=== PATIENT | male | born 1965 | race Caucasian/White ===

== ENCOUNTER 2019-09-21 06:05 | Emergency (ER) | payer OTHER ==
--- NOTE | 2019-09-21 09:19 | ER Document Report ---
ED General - General Chief Complaint: Blood Pressure Problem Stated Complaint: NAUSEA/HIGH BLOOD PRESSURE Time Seen by Provider: 09/21/19 09:00 [facility] [[facility] - Follow up as needed Mode of Arrival: Ambulatory Information source: Patient TRAVEL OUTSIDE OF THE [place] IN LAST 30 DAYS: No - HPI Onset: Other - over the last several days Onset/Duration: Gradual Quality of pain: Pressure Severity: Mild Pain Level: 1 Associated symptoms: Other - Anxiety, PTSD, Stress Exacerbated by: Other - Stress Relieved by: Other - Calming himself down and taking his Anxiety Medication Similar symptoms previously: Yes Recently seen / treated by doctor: Yes - Patient has seen his PCP recently Notes: 54 year old male with a history of HTN, PTSD, Anxiety here in the ER for Anxiety and Chest Pains. 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 The patient says he had a night mare last night which he feels made his blood pressure spike. The patient took viagra to help with his blood pressure spike (he has been told he can do this PRN) and it seemed to help. The patient endorses some mild radiation of chest pain to his left neck but he denies nausea, vomiting, sweating, fevers, chills. - Related Data Allergies/Adverse Reactions: Penicillins Allergy (Verified 09/21/19 07:05) Past Medical History - General Information source: Patient - Social History Smoking Status: Former Smoker Frequency of alcohol use: Occasional Drug Abuse: None Lives with: Alone Family History: Reviewed & Not Pertinent Patient has suicidal ideation: No Patient has homicidal ideation: No - Past Medical History Cardiac Medical History: Reports: Hx Hypertension Psychiatric Medical History: Reports: Hx Anxiety, Hx Post Traumatic Stress Disorder Review of Systems - Review of Systems Constitutional: No symptoms reported EENT: No symptoms reported Cardiovascular: Chest pain Respiratory: No symptoms reported Gastrointestinal: No symptoms reported Genitourinary: No symptoms reported Male Genitourinary: No symptoms reported Musculoskeletal: No symptoms reported Skin: No symptoms reported Hematologic/Lymphatic: No symptoms reported Neurological/Psychological: Anxiety, Other - PTSD, Stress -: Yes All other systems reviewed and negative Physical Exam - Vital signs Vitals: Temp 97.7 F 09/21/19 06:52 - Notes Notes: GENERAL: Well-appearing, well-nourished and in no acute distress. HEAD: Atraumatic, normocephalic. EYES: Pupils equal round and reactive to light, extraocular movements intact, sclera anicteric, conjunctiva are normal. ENT: External ears normal, nares patent, oropharynx clear without exudates. Moist mucous membranes. NECK: Normal range of motion, supple without lymphadenopathy or JVD. LUNGS: Breath sounds clear to auscultation bilaterally and equal. No wheezes rales or rhonchi. HEART: Regular rate and rhythm without murmurs, rubs or gallops. ABDOMEN: Soft, nontender, normoactive bowel sounds. No guarding, no rebound. No masses appreciated. EXTREMITIES: Normal range of motion, no pitting or edema. No clubbing or cyanosis. NEUROLOGICAL: Cranial nerves II through XII grossly intact. Normal speech, normal gait. PSYCH: Normal mood, normal affect. SKIN: Warm, Dry, normal turgor, no rashes or lesions noted. Course - Re-evaluation Re-evalutation: 09/21/19 11:26 The patient is here in the ER for anxiety, concern of worsening PTSD, and chest pains. The patient says his anxiety has caused his blood pressure to spike and he feels it is likely the cause of his chest pain. Patient's Trop completely negative. Patient told to follow up with his PCP and with outpatient Cardiology for an outpatient Cardiac Stress Test. - Vital Signs Vital signs: Temp Pulse Resp BP Pulse Ox 97.7 F 91 16 114/68 97 09/21/19 06:52 09/21/19 06:55 09/21/19 06:55 09/21/19 06:55 09/21/19 06:55 - Laboratory Result Diagrams: 09/21/19 10:22 09/21/19 10:22 Laboratory results interpreted by me: 09/21/19 10:22 Sodium 135.1 L Glucose 295 H Total Bilirubin 1.7 H - Diagnostic Test Radiology reviewed: Image reviewed, Reports reviewed - EKG Interpretation by Me EKG shows normal: Sinus rhythm, [place], Intervals, QRS Complexes, ST-T Waves Rate: Normal Rhythm: NSR Discharge - Discharge Clinical Impression: PTSD (post-traumatic stress disorder) Chest pain Qualifiers: Chest pain type: unspecified Qualified Code(s): R07.9 - Chest pain, unspecified Condition: Stable Disposition: HOME, SELF-CARE Instructions: Chest Pain of Unclear Cause ([facility]), Post-Traumatic Stress Disorder ([facility]) Additional Instructions: Follow up with your primary care doctor and also follow up with a Systems Developer. Tell your primary care doctor you were in the ER today. You had blood work, a chest xray, and an EKG in the ER today which were all unremarkable except for your glucose being elevated at 295. You should have an outpatient Cardiac Stress Test in the next several days. [facility]errals: [facility] [Primary [facility]] - Follow up as needed
--- NOTE | 2019-09-21 09:51 | RADIOLOGY REPORT (SQ) ---
EXAM DESCRIPTION: CHEST 2 VIEWS IMAGES COMPLETED DATE/TIME: 09/21/2019 9:23 am REASON FOR STUDY: eval for chest pain COMPARISON: None. TECHNIQUE: Frontal and lateral radiographic views of the chest acquired. NUMBER OF VIEWS: Two view. LIMITATIONS: None. FINDINGS: LUNGS AND PLEURA: No opacities, masses or pneumothorax. No pleural effusion. MEDIASTINUM AND HILAR STRUCTURES: No masses or contour abnormalities. HEART AND VASCULAR STRUCTURES: Heart normal size. No evidence for failure. BONES: No acute findings. HARDWARE: None in the chest. OTHER: No other significant finding. IMPRESSION: NO SIGNIFICANT RADIOGRAPHIC FINDING IN THE CHEST. TECHNICAL DOCUMENTATION: JOB ID: [id number] [email or web address]- All Rights Reserved Reading location - IP/workstation name: [email or web address]
[2019-09-21 10:40] LABS: ABSOLUTE EOSINOPHILS # (AUTO) 0.1 10^3/uL (0.0-0.6); ABSOLUTE LYMPHOCYTES (AUTO) 1.5 10^3/uL (0.5-4.7); ABSOLUTE MONOCYTES (AUTO) 0.5 10^3/uL (0.1-1.4); ABSOLUTE NEUT (AUTO) 4.3 10^3/uL (1.7-8.2); BASOPHILS % (AUTO) 0.5 % (0-2); EOSINOPHILS % (AUTO) 1.4 % (0-6); HEMATOCRIT 44.9 % (37.9-51.0); HEMOGLOBIN 16.2 g/dL (13.5-17.0); LYMPHOCYTES % (AUTO) 23.5 % (13-45); MEAN CORPUSCULAR VOLUME 86 fl (80-97); MONOCYTES % (AUTO) 7.6 % (3-13); PLATELET COUNT 189 10^3/uL (150-450); RED BLOOD COUNT 5.21 10^6/uL (4.35-5.55); TOTAL CELLS COUNTED % (AUTO) 100 %; WHITE BLOOD COUNT 6.5 10^3/uL (4.0-10.5)
[2019-09-21 11:00] LABS: ALBUMIN 4.3 g/dL (3.5-5.0); ALKALINE PHOSPHATASE 78 U/L (38-126); ANION GAP 8 (5-19); ASPARTATE AMINO TRANSFERASE 23 U/L (17-59); BILIRUBIN,TOTAL 1.7 mg/dL (0.2-1.3); BLOOD UREA NITROGEN 18 mg/dL (7-20); CALCIUM 9.5 mg/dL (8.4-10.2); CARBON DIOXIDE 26 mmol/L (22-30); CHLORIDE 101 mmol/L (98-107); GLUCOSE 295 mg/dL (75-110); POTASSIUM 4.5 mmol/L (3.6-5.0); TOTAL PROTEIN 7.2 g/dL (6.3-8.2)
[2019-09-21 12:35] VITALS: BP 127/78
--- NOTE | 2019-09-21 20:29 | EKG REPORT ---
SEVERITY:- NORMAL ECG - SINUS RHYTHM : Confirmed by: Kelley Khan MD 21-Sep-2019 20:29:14
== END 2019-09-21 12:10 | disposition home or self-care (01) ==
LOC: ER 06:05
DX: F43.10 Post-traumatic stress disorder, unspecified (principal); F41.9 Anxiety disorder, unspecified; R07.9 Chest pain, unspecified; I10 Essential (primary) hypertension; Z79.899 Other long term (current) drug therapy; Z63.5 Disruption of family by separation and divorce; Z88.0 Allergy status to penicillin; Z87.891 Personal history of nicotine dependence
CPT/HCPCS: 36415; 71046; 80053; 84484; 85025; 93005; 93010; 99284

== ENCOUNTER 2019-12-31 05:51 | Emergency (ER) | payer OTHER ==
[2019-12-31 06:01] VITALS: BP 130/95
--- NOTE | 2019-12-31 06:38 | ER Document Report ---
HPI - HPI Time Seen by Provider: 12/31/19 06:32 Pain Level: Denies Context: Patient is a 54-year-old male that comes emergency department for chief complaint of concerns about his blood pressure being elevated. Patient states that he felt slightly lightheaded just prior to arrival as well and he thinks it might be because of his blood pressure. Patient denies chest pain, dizziness, abdominal pain, nausea, vomiting, focal numbness or weakness, headache, or any current complaints. Blood pressure in the 150s systolic on evaluation is at this time, patient is asking for his blood sugar to be checked as well. Past medical history of hypertension on lisinopril, type 2 diabetes on Trulicity. Denies medical history otherwise. Patient also adds that he had a nightmare and was restlessly going around town last night instead of sleeping. He denies SI or HI, denies hallucinations. [facility] Past Medical History - General Information source: Patient - Social History Smoking Status: Current Some Day Smoker Frequency of alcohol use: Rare Drug Abuse: None Lives with: Alone Family History: Reviewed & Not Pertinent - Past Medical History Cardiac Medical History: Reports: Hx Hypertension Endocrine Medical History: Reports: Hx Diabetes Mellitus Type 2 Psychiatric Medical History: Reports: Hx Anxiety, Hx Post Traumatic Stress Disorder - Immunizations Hx Diphtheria, Pertussis, Tetanus Vaccination: Yes Vertical Provider Document - CONSTITUTIONAL General Appearance: WD/WN, No Apparent Distress - INFECTION CONTROL TRAVEL OUTSIDE OF THE [place] IN LAST 30 DAYS: No - HEENT HEENT: Atraumatic, Normal ENT Exam, Normocephalic - NECK Neck: Normal Inspection - RESPIRATORY Respiratory: Breath Sounds Normal, No Respiratory Distress - CARDIOVASCULAR Cardiovascular: Regular Rate, Regular Rhythm - GI/ABDOMEN Gastrointestinal: Abdomen Soft, Abdomen Non-Tender. negative: Abdomen Tender - MUSCULOSKELETAL/EXTREMETIES Musculoskeletal/Extremeties: MAEW, FROM, Non-Tender - NEURO Level of Consciousness: Awake, Alert, Appropriate Motor/Sensory: No Motor Deficit, No Sensory Deficit - DERM Integumentary: Warm, Dry, No Rash Course - Re-evaluation Re-evalutation: Patient with no current symptoms, neurological exam unremarkable, vital signs rechecked and unremarkable with blood pressure of 130 systolic on my evaluation. Patient with asymptomatic hypertension. Because of his brief episode of dizziness we did check his glucose and this was unremarkable, I recommended full laboratory work-up and evaluation but patient declined. He states that he has) care follow-up and he will return if he develops any additional symptoms, I discussed these in detail with the patient, patient states appreciation and agreement. Stable, well-appearing, asymptomatic at time of discharge. - Vital Signs Vital signs: Temp Pulse Resp BP Pulse Ox 98.1 F 92 20 130/95 H 96 12/31/19 06:00 12/31/19 06:00 12/31/19 06:00 12/31/19 06:00 12/31/19 06:00 - Laboratory Laboratory results interpreted by me: 12/31/19 06:25 POC Glucose 202 H Discharge - Discharge Clinical Impression: Elevated blood pressure reading, Episodic lightheadedness Condition: Stable Disposition: HOME, SELF-CARE Additional Instructions: Your evaluation at this time is reassuring. Improve your sleep patterns, continue your current medications, follow-up with primary care for additional evaluation and management. Return if you worsen including chest pain, difficulty breathing, passing out, fever, vomiting, or any other concerning symptoms. Forms: Return to Work Referrals: [facility] [Primary [facility]] - Follow up as needed
== END 2019-12-31 06:35 | disposition home or self-care (01) ==
LOC: ER 05:51
DX: I10 Essential (primary) hypertension (principal); R42 Dizziness and giddiness; E11.9 Type 2 diabetes mellitus without complications; F17.200 Nicotine dependence, unspecified, uncomplicated; Z79.899 Other long term (current) drug therapy; Z79.84 Long term (current) use of oral hypoglycemic drugs
CPT/HCPCS: 82962; 99283